=== PATIENT | male | born 1980 | race Caucasian/White ===

== ENCOUNTER 2021-10-27 11:34 | Outpatient (CLI) | payer MEDICAID, SELFPAY ==
[2021-10-27 21:33] LABS: Chloride* 104 mmol/L (96-114)
[2021-10-27 21:34] LABS: Potassium* 4.9 mmol/L (3.6-5.1); Sodium* 139 mmol/L (135-149)
[2021-10-27 21:36] LABS: Blood Urea Nitrogen* 22 mg/dL (5-24); Carbon Dioxide* 26 mmol/L (20-32); Cholesterol* 254 mg/dL (90-199); Estimated Glomerular Filt Rate 96 ml/min
[2021-10-27 21:37] LABS: Glucose* 120 mg/dL (60-115); HDL Cholesterol* 62 mg/dL (>=40); LDL Cholesterol Calculated 163 mg/dL (<100); Triglycerides* 143 mg/dL (40-149)
== END 2021-10-27 11:35 | disposition home or self-care (01) ==
PROVIDERS: PCP Family Medicine; Visit Provider Family Medicine
DX: Z00.00 Encounter for general adult medical examination without abnormal findings (principal); R03.0 Elevated blood-pressure reading, without diagnosis of hypertension; Z01.818 Encounter for other preprocedural examination; Z13.6 Encounter for screening for cardiovascular disorders
CPT/HCPCS: 80048; 80061

== ENCOUNTER 2022-06-09 16:50 | Outpatient (CLI) | payer MEDICAID, SELFPAY ==
[2022-06-09 17:14] LABS: Basophils Absolute Auto 0.05 K/uL (0.00-0.30); Basophils Percent Auto 0.5 % (0.0-3.0); Eosinophils Absolute Auto 0.47 K/uL (0.00-0.50); Eosinophils Percent Auto 4.5 % (0.0-7.0); Hematocrit 44.7 % (37.0-53.0); Hemoglobin* 15.2 gm/dL (13.5-17.5); Lymphocytes Absolute Auto 2.34 K/uL (0.90-2.90); Lymphocytes Percent Auto 22.5 % (20-44); Mean Corpuscular HGB Conc 34 gm/dL (32-36); Mean Corpuscular Hemoglobin 31 pg (26-34); Mean Corpuscular Volume 91 fL (80-100); Monocytes Absolute Auto 0.75 K/UL (0.00-0.90); Monocytes Percent Auto 7.2 % (0.0-11.0); Neutrophils Absolute Auto 6.81 K/uL (1.7-7.0); Neutrophils Percent Auto 65.3 % (42.0-72.0); Platelet Count* 261 K/uL (140-440); White Blood Count* 10.42 K/uL (4.50-11.00)
[2022-06-09 17:15] LABS: Slide Review Reflex No
[2022-06-09 17:28] LABS: D Dimer Quantitative* < 100 ng/ml (100-500)
[2022-06-09 22:05] LABS: Albumin* 4.5 g/dL (3.3-5.0)
[2022-06-09 22:06] LABS: Chloride* 105 mmol/L (96-114); Potassium* 4.2 mmol/L (3.6-5.1); Sodium* 139 mmol/L (135-149)
[2022-06-09 22:08] LABS: Bilirubin Direct* 0.2 mg/dL (0.0-0.5); Bilirubin Total* 0.6 mg/dL (0.1-1.5); Carbon Dioxide* 22 mmol/L (20-32); Estimated Glomerular Filt Rate 96 ml/min
[2022-06-09 22:09] LABS: Alanine Aminotransferase* 45 U/L (4-50); Alkaline Phosphatase* 117 U/L (40-150); Aspartate Amino Transferase* 28 U/L (12-35); Blood Urea Nitrogen* 18 mg/dL (5-24); Calcium* 9.5 mg/dL (8.4-10.6); Glucose* 101 mg/dL (60-115); Total Protein* 7.6 g/dL (6.0-8.3)
== END 2022-06-09 16:51 | disposition home or self-care (01) ==
PROVIDERS: PCP Family Medicine; Visit Provider Family Medicine
DX: R42 Dizziness and giddiness (principal); R07.9 Chest pain, unspecified; E78.5 Hyperlipidemia, unspecified; F41.9 Anxiety disorder, unspecified; R73.9 Hyperglycemia, unspecified
CPT/HCPCS: 80048; 80076; 84443; 84484; 85025; 85379

== ENCOUNTER 2023-07-08 09:41 | Outpatient (CLI) | payer MEDICAID, SELFPAY | END 2023-07-08 09:42 | disposition home or self-care (01) | PROVIDERS: PCP Family Medicine; Visit Provider Family Medicine | DX: R11.2 Nausea with vomiting, unspecified (principal); I10 Essential (primary) hypertension; Z13.29 Encounter for screening for other suspected endocrine disorder; E11.9 Type 2 diabetes mellitus without complications | CPT/HCPCS: 80048; 84443 ==

== ENCOUNTER 2023-12-21 11:46 | Outpatient (CLI) | payer MEDICAID, SELFPAY | END 2023-12-21 11:47 | disposition home or self-care (01) | LOC: NFLDREF 12-27 06:44 | PROVIDERS: PCP Family Medicine; Referring Provider Family Medicine; Visit Provider Family Medicine | DX: Z01.818 Encounter for other preprocedural examination (principal); I10 Essential (primary) hypertension; E11.9 Type 2 diabetes mellitus without complications | CPT/HCPCS: 82043; 82570 ==